=== PATIENT | male | born 1935 | race Caucasian/White ===

== ENCOUNTER 2020-01-02 15:24 | Inpatient (IN) | payer MEDICARE ==
[~2020-01-02] VITALS: Ht 182.9 cm; Wt 79.5 kg
[2020-01-02 16:25] VITALS: BP 152/80; Ht 182.9 cm; Wt 79.5 kg
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
[2020-01-02 17:19] LABS: BASOPHILS 0.5 % (0-2); EOSINOPHILS 2.5 % (0-7); HEMATOCRIT 37.9 % (42.0-54.0); HEMOGLOBIN 12.5 g/dL (13.5-17.5); IMMATURE GRANULOCYTES 0.1 % (0-5); LYMPHOCYTES 27.8 % (15-50); MCH 31.7 pg (26.0-34.0); MCV 96.2 fL (80.0-100.0); NEUTROPHILS 59.1 % (40-80); PLATELET COUNT 225 10x3/uL (130-400); RBC 3.94 10x6/uL (4.20-6.10); RDW 13.2 % (11.5-14.5); WBC 8.3 10x3/uL (4.8-10.8)
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
[2020-01-02 18:03] LABS: ALBUMIN 3.9 g/dL (3.4-5.0); ALKALINE PHOSPHATASE 96 U/L (30-120); ALT (SGPT) 21 U/L (10-68); BILIRUBIN - TOTAL 0.49 mg/dL (0.2-1.3); CALC OSMOLALITY 270 mosm/kg (275-300); CALCIUM 8.9 mg/dL (8.5-10.1); CARBON DIOXIDE 24.9 mmol/L (21.0-32.0); CHLORIDE - SERUM 101 mmol/L (98-107); CHOL - HDL RATIO 3.7 ratio (2.3-4.9); CHOLESTEROL, TOTAL 192 mg/dL (0-200); CREATININE - SERUM 0.9 mg/dL (0.6-1.3); GLUCOSE 100 mg/dL (74-106); HDL CHOLESTEROL 52 mg/dL (32-96); LDL CHOLESTEROL 130 mg/dL (0-100); LDL-HDL RATIO 2.5 ratio (1.5-3.5); POTASSIUM - SERUM 4.1 mmol/L (3.5-5.1); SODIUM 135 mmol/L (136-145); THYROID STIMULATING HORMONE 2.07 uIU/mL (0.36-3.74); TRIGLYCERIDE 52 mg/dL (30-200); UREA NITROGEN 14 mg/dL (7-18); eGFR NON AFRICAN AMERICAN 85 mL/min (90-120)
--- NOTE | 2020-01-02 19:13 | NUR ---
RECEIVED IN DAYROOM. SITTING IN A CHAIR WITH PEERS AT HIS SIDE. CALM AND COOPERATIVE WITH CARE AND ASSESSMENT. NO SIGNS OF AGGRESSION. REDIRECT AND REORIENT NEEDED. ORIENT TO UNIT. REMAINS CALM AND COOPERATIVE. CONTINUE PLAN OF CARE.
[2020-01-02 19:53] LABS: BILIRUBIN NEGATIVE (NEGATIVE); GLUCOSE NEGATIVE (NEGATIVE); KETONE SMALL mg/dL (NEGATIVE); NITRITE NEGATIVE (NEGATIVE); SPECIFIC GRAVITY 1.015 (1.005-1.020); UROBILINOGEN NORMAL (NORMAL)
[2020-01-02 20:25] VITALS: BP 147/72
--- NOTE | 2020-01-02 22:30 | NUR ---
PATIENT FALL. STATES HE WAS SITTING ON THE BED DOING SOMETHING WITH HIS CLOTHS AND LEANED OVER AND FELL. STATES HE HAS PAIN IN THE LEFT SIDE OF HIS HIP TO HIS BOTTOM. DOCTOR KENNEY CALLED AND ORDERS GIVEN TO X-RAY HIP AND START NEURO CHECKS. HOUSE SUPER INFORMED OF FALL. PATIENT SON "MARIO" INFORMED OF PATIENT FALL.
[2020-01-03] MEDS ORDERED: HYDROCODON-ACE1 EA10 PO (02:03)
[2020-01-03] MEDS ORDERED: HALDOL5 MG PO (02:04)
[2020-01-03] MEDS ORDERED: ATIVAN0.5 MG PO (02:06)
--- NOTE | 2020-01-03 03:42 | NUR ---
DOCTOR KENNEY CALLED AND NOTIFIED OF HIP FRACTURE. NEW ORDERS RECEIVED FOR NORCO 10 PRN EVERY 4 HRS AND TRANSFERE TO MED/SURG FOR. CONSULT ORTHO.
[2020-01-03 06:08] LABS: RAPID PLASMA REAGIN Non Reactive (Non Reactive)
== END 2020-01-03 01:59 | disposition short-term general hospital (02) | DRG 57 ==
LOC: D.PSYCH 15:24
PROVIDERS: ADMIT Psychiatry & Neurology Psychiatry; ATTEND Psychiatry & Neurology Psychiatry
DX: G30.9 Alzheimer's disease, unspecified (principal); S72.002A Fracture of unspecified part of neck of left femur, initial encounter for closed fracture; F02.81 Dementia in other diseases classified elsewhere, unspecified severity, with behavioral disturbance; R26.9 Unspecified abnormalities of gait and mobility; M19.90 Unspecified osteoarthritis, unspecified site; W19.XXXA Unspecified fall, initial encounter

== ENCOUNTER 2020-01-03 01:50 | Inpatient (IN) | payer MEDICARE ==
[~2020-01-03] VITALS: Ht 182.9 cm; Wt 79.4 kg
--- NOTE | 2020-01-03 02:00 | NUR ---
PT ARRIVED VIA HOSPITAL BED TO UNIT WITH X2 NURSES. ORIENTED TO ROOM AND CALL LIGHT. BED ALARM ACTIVATED AND SIDE RAILS UP X3 FOR SAFETY.
[2020-01-03] MEDS ORDERED: HYDROCODON-ACE1 EA10 PO (02:03)
[2020-01-03] MEDS ORDERED: HALDOL5 MG PO (02:04)
[2020-01-03] MEDS ORDERED: ATIVAN0.5 MG PO (02:06)
--- NOTE | 2020-01-03 02:20 | NUR ---
IV SITED TO RIGHT FOREARM USING 20 GUAGE CATHETER IN ONE STICK. SALINE LOCKED AND WRAPPED WITH KERLEX TO KEEP PT FROM PULLING OUT.
--- NOTE | 2020-01-03 02:45 | NUR ---
PT O2 SATS AT 70% . PLACED O2 VIA NC AT 5L BEFORE IT GOT ABOVE 90%. CALLED RT TO EVAL.
[2020-01-03 02:51] VITALS: BP 119/59; BMI 23.8
--- NOTE | 2020-01-03 03:12 | NUR ---
VALUABLES: JAZZ SYLVESTER, CHECKBOOK, TAKEN TO ER ADMISSIONS BY MAR BENAVIDES...LOCKED IN HOSPITAL SAFE WITH WITNESS TO CONTENTS.
--- NOTE | 2020-01-03 03:13 | NUR ---
PT GIVEN A HIBACLENS BATH. YELLOW GOWN, GRIPPER SOCKS, AND BED ALARM IN PLACE FOR FALL PRECAUTIONS.
--- NOTE | 2020-01-03 03:14 | NUR ---
ADMISSION ASSESSMENT AND HISTORY COMPLETE.
[2020-01-03 04:00] VITALS: BP 119/59
[2020-01-03 07:37] VITALS: BP 147/73
--- NOTE | 2020-01-03 07:40 | NUR ---
ALERT AND ORIENTED TO SELF. LUNGS CLEAR BILATERALLY. HEART SOUNDS S1 AND S2 HEARD IN ALL SANTIAGO. BOWEL SOUNDS ACTIVE X 4. SKIN INTACT WITHOUT REDNESS. IV TO RFA SL PATENT WITHOUT REDNESS. BED LOW. FALL PRECAUTIONS IN PLACE. CALL PEDRO AND PERSONAL ITEMS IN REACH. WILL CONTINUE TO MONITOR.
[2020-01-03 08:10] LABS: BASOPHILS 0.1 % (0-2); EOSINOPHILS 0.3 % (0-7); HEMATOCRIT 37.9 % (42.0-54.0); HEMOGLOBIN 12.6 g/dL (13.5-17.5); IMMATURE GRANULOCYTES 0.2 % (0-5); LYMPHOCYTES 5.7 % (15-50); MCH 31.7 pg (26.0-34.0); MCHC 33.2 g/dL (31.0-37.0); MCV 95.5 fL (80.0-100.0); MEAN PLATELET VOLUME 9.5 fL (7.4-10.4); MONOCYTES 8.2 % (2-11); NEUTROPHILS 85.5 % (40-80); PLATELET COUNT 182 10x3/uL (130-400); RBC 3.97 10x6/uL (4.20-6.10); RDW 13.4 % (11.5-14.5)
[2020-01-03 08:27] LABS: WBC 14.4 10x3/uL (4.8-10.8)
[2020-01-03 08:31] LABS: ALBUMIN 3.5 g/dL (3.4-5.0); ANION GAP 13.3 mmol/L (8-16); BILIRUBIN - TOTAL 0.91 mg/dL (0.2-1.3); CALCIUM 8.7 mg/dL (8.5-10.1); CARBON DIOXIDE 25.7 mmol/L (21.0-32.0); CREATININE - SERUM 1.1 mg/dL (0.6-1.3); INR 0.99 (0.85-1.17); PROTEIN - SERUM 6.8 g/dL (6.4-8.2); PROTIME 13.1 SECONDS (11.6-15.0)
--- NOTE | 2020-01-03 10:30 | NUR ---
SPOKE WITH MARIO, PATIENT'S SON, WHO GAVE VERBAL CONSENT FOR PROCEDURE FOR PATIENT. CONSENT GIVEN TO SECOND RN, ASHLEY, WELL. CONSENTS SIGNED AND ON CHART FOR PROCEDURE.
--- NOTE | 2020-01-03 11:01 | NUR ---
PATIENT ATTEMPTING TO GET OOB. READJUSTED IN BED WITH SOME CONVINCING. CONVINCED TO WEAR O2 WELL. TV TURNED ON AND PATIENT GIVEN REMOTE CONTROL. SATISFIED AND CONTENT AT THIS TIME.
[2020-01-03 12:17] VITALS: BP 165/74
--- NOTE | 2020-01-03 13:24 | NUR ---
RESTING IN BED. DENIES NEEDS. WILL CONTINUE TO MONITOR.
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
--- NOTE | 2020-01-03 21:39 | NUR ---
CODE GIUSEPPE CALLED AND GEODON GIVEN ORDERED DUE TO AGITATION, YELLING THREATENING TO HIT, LEGS OVER SIDE RAILS, SPOKE WITH ALAYNA WHO SUGESTED GIVE GEODON
--- NOTE | 2020-01-04 06:00 | NUR ---
CALL RECIEVED FROM DR WISDOM TO PREOP NOW FOR SURGERY, MEDS GIVEN ORDERED
--- NOTE | 2020-01-04 06:40 | NUR ---
TO SURGERY VIA STRETCHER
--- NOTE | 2020-01-04 07:00 | NUR ---
PT WAS OFF FLOOR AT THIS TIME IN SURGERY.
--- NOTE | 2020-01-04 09:43 | NUR ---
O2 DELIVERY CHANGED TO 10 LPM VIA HIFLO NC
--- NOTE | 2020-01-04 10:00 | NUR ---
REC'D BACK FROM SURGERY AT THIS TIME RESTING WITH EYES CLOSED EASILY TO AROUSED WHEN NAME IS CALLED, THEN DOSE BACK OFF TO SLEEP. RESP EVEN AND UNLABORED WITH NO DISTRESS NOTED. CAN EXPRESS SOME NEEDS AND WANTS. DRESSING INTACT WITH ICE PACK IN USE TO LEFT HIP. C/L IN REACH AT BEDSIDE.
[2020-01-04 10:01] VITALS: BP 156/67
--- NOTE | 2020-01-04 10:39 | OP ---
PATIENT NAME: MARGRET VALADEZ MEDICAL RECORD: [id number] :37 LOCATION:[id number] ADMISSION DATE:01/03/20 SURGEON: HAN WISDOM MD DATE OF OPERATION: 01/04/2020 PREOPERATIVE DIAGNOSIS: Displaced femoral neck fracture of left hip. POSTOPERATIVE DIAGNOSIS: Displaced femoral neck fracture of left hip. PROCEDURE: Bipolar endoprosthetic replacement for left hip fracture. SURGEON: Han Wisdom MD BUDGET ACCOUNTANT: JUAN Salas INTRAOPERATIVE COMPLICATIONS: None. SUMMARY OF PATHOLOGIC FINDINGS: The patient has displaced femoral neck fracture consistent with the preoperative radiographs and diagnosis. IMPLANTS USED: Accolade II Bipolar stem with a 56 outside diameter component and a 26-mm inside diameter, -3, size 8 Accolade stem. OPERATIVE SUMMARY IN DETAIL: After obtaining the appropriate preoperative orthopedic surgery consent as well as anesthetic consultation, evaluation and clearance, the patient was brought to the operating room and placed on the operating table in supine position. After adequate general endotracheal anesthesia was administered, the patient was placed in a right lateral decubitus position. All pressure points were well padded to include down leg peroneal pad as well as axillary roll. The patient was held firmly to the operating table using the vacuum pack suction system. Left lower extremity and hip were then prepped and draped in routine sterile fashion. Curvilinear incision was made over the greater trochanter taking down all of the IT band, which was split in line with fibers of the IT band to reveal the gluteus medius minimus attached from the greater trochanter. These were reflected anteriorly. Hip capsule was split in a T-type fashion and saved for later reapproximation. Femoral neck cut was made using the Accolade II femoral neck cutting guide. This was followed by extraction of the femoral head. Appropriate measurements were taken. Serial and sequential reaming and broaching were done for a size 8 stem, size 8 stem was tamped into place. Trials were undertaken. It was felt that -3 with 56 outside diameter was most appropriate. This was tamped in place with the Zaragoza taper. The hip was reduced, taken through range of motion and found to be stable in all planes. At this point, radiographs were taken, which showed good position and placement with zoroastrianism of leg length. Wound was then filled with a gram of vancomycin and a gram of tobramycin and closed by Garcia Walker, FA including the hip capsule closed with #2 Ethibond followed by #5 Ethibond, reapproximation of gluteus medius minimus to the greater trochanter. This was then followed by IT band closure with #2 Ethibond, then finished with #1 Vicryl, 2-0 Vicryl and skin andrew. Sterile dressings were applied. The patient was awakened and taken to the recovery room in stable condition. All final needle and sponge counts were correct. It is of note that the patient did have an episode of atrial fibrillation and required digitalis as well as esmolol. It is also of note that during the coronavirus pandemic, the patient could have no visitors. I therefore called his son postoperatively and discussed the entire situation with him and that the patient will go to a monitored bed with at this OPERATIVE REPORT [id number] MARGRET VALADEZ. TRANSINT:[id number] Voice Confirmation ID: [id number] DOCUMENT ID: [id number] ALYX FRANKEL, HAN BRYANT at 1039 CC: [id number] DICTATION DATE: 01/04/20920 ADMINISTRATION DEAN: 01/04/20 1037 ADM IN [facility] [address] [id number]
[2020-01-04 13:33] VITALS: Ht 182.9 cm; Wt 79.4 kg
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
--- NOTE | 2020-01-04 16:53 | NUR ---
I have reviewed this patient and I concur with the Shift Assessment completed by the Licensed Practical Nurse today this shift.
--- NOTE | 2020-01-04 18:42 | NUR ---
PT PULLED IV OUT AND REFUSED FOR NURSE TO RESITE. PT WAS COMBATIVE. REDIRECT GIVEN BUT WAS UNSUCCESSFUL.
--- NOTE | 2020-01-04 19:46 | NUR ---
PATIENT RESTING IN BED WITH NO S/S OF DISTRESS. BED IN LOWEST POSITION AND CALL LIGHT WITHIN REACH. PATIENT DENIES NEEDS AT THIS TIME. ENOURAGED THE PATIENT TO CALL IF HE HAS NEEDS. WILL CONTINUE TO MONITOR.
[2020-01-04 21:49] VITALS: BP 126/67
--- NOTE | 2020-01-04 22:07 | NUR ---
ADMINISTERED MEDS PER ORDERS. PATIENT DENIES OTHER NEEDS AT THIS TIME. WILL CONTINUE TO MONITOR.
--- NOTE | 2020-01-05 03:27 | NUR ---
SITED PATIENT'S IV TO HIS RIGHT FA WITH A 20G ON THE FIRST ATTEMPT.
[2020-01-05 05:29] LABS: HEMATOCRIT 36.2 % (42.0-54.0); HEMOGLOBIN 11.6 g/dL (13.5-17.5); MCH 31.2 pg (26.0-34.0); MCV 97.3 fL (80.0-100.0); MEAN PLATELET VOLUME 10.4 fL (7.4-10.4); RBC 3.72 10x6/uL (4.20-6.10); RDW 13.9 % (11.5-14.5); WBC 11.3 10x3/uL (4.8-10.8)
[2020-01-05 06:01] VITALS: BP 100/67
[2020-01-05 09:37] VITALS: BP 158/85
--- NOTE | 2020-01-05 10:26 | NUR ---
PT CONFUSED. BREATH SOUNDS CLEAR BILAT, 3L O2 PER NC. IV TO RIGHT FOREARM, PATENT, DRESSING CDI. TELEMETRY IN PLACE. DRESSING TO LEFT HIP CDI. BED LOW, CALL LIGHT IN REACH. NO OTHER NEEDS AT THIS TIME.
[2020-01-05 13:42] VITALS: BP 156/78
[2020-01-05 17:16] VITALS: BP 154/86
[2020-01-05 20:00] VITALS: BP 131/95
--- NOTE | 2020-01-05 20:00 | NUR ---
PATIENT RESTING IN BED WITH EYES OPEN. NO S/S OF ACUTE DISTRESS. NO C/O AT THIS TIME. PATIENT IS CONFUSED AND COMBATIVE, ORIENTATED ONLY TO SELF. PATIENT IS ON 3L OF O2. PATIENT HAS NO IV ACCESS BECAUSE HE KEEPS TAKING THEM OUT. PATIENT HAS TELEMETRY BUT KEEPS TAKING IT OFF. PATIENT HAD SURGERY TODAY ON LEFT HIP, DRESSING C/D/I. PATIENT IS INCONTINENT OF BOWEL AND BLADDER. PATIENT HAS MARU ALARM ON BED. CALL LIGHT IN PLACE. WILL CONTINUE TO MONITOR.
[2020-01-06] VITALS: BP 147/89
[2020-01-06 04:00] VITALS: BP 106/75
[2020-01-06 05:12] LABS: HEMATOCRIT 37.2 % (42.0-54.0); HEMOGLOBIN 12.3 g/dL (13.5-17.5); MCH 31.9 pg (26.0-34.0); MCHC 33.1 g/dL (31.0-37.0); MCV 96.4 fL (80.0-100.0); MEAN PLATELET VOLUME 10.9 fL (7.4-10.4); RBC 3.86 10x6/uL (4.20-6.10); RDW 13.9 % (11.5-14.5); WBC 11.8 10x3/uL (4.8-10.8)
--- NOTE | 2020-01-06 06:21 | NUR ---
I have reviewed this patient and I concur with the Shift Assessment completed by the Licensed Practical Nurse today this shift.
--- NOTE | 2020-01-06 07:20 | NUR ---
REC'D IN BED ON WALKING ROUNDS WITH EYES CLOSED EASILY TO AROUSED WHEN NAME IS CALLED. RESP EVEN AND UNLABORED WITH NO DISTRESS NOTED. PT CONTINUE TO GET VERLY AGGRESSIVE FROM TIME TO TIME. ASSESSMENT COMPLETED. C/L IN REACH AT BEDSIDE.
[2020-01-06] MEDS ORDERED: HYDROCODON-ACE1 EA10 PO (09:38)
[2020-01-06] MEDS ORDERED: ELIQUIS2.5 MG PO (09:39)
[2020-01-06 13:06] VITALS: BP 179/117
[2020-01-06 16:28] VITALS: BP 181/96
[2020-01-06 20:00] VITALS: BP 134/78
--- NOTE | 2020-01-06 20:00 | NUR ---
PATIENT RESTING IN BED WITH EYES CLOSED. NO S/S OF DISTRESS. NO C/O AT THIS TIME. PATIENT IS CONFUSED, ORIENTATED ONLY TO SELF. PATIENT IS COMABATIVE WHEN TRYING TO MOVE TO REPOSITION HIM OR TO CHANGE HIM. PATIENT HAS DRESSING TO LEFT HIP, C/D/I, FROM SURGERY THREE DAYS AGO. PATIENT IS INCONTIENT OF BOWEL AND BLADDER. PATIENT HAS MARU ALARM IN PLACE AND TURNED ON. CALL LIGHT IN PLACE. WILL CONTINUE TO MONITOR.
[2020-01-07] VITALS: BP 130/76
[2020-01-07 04:00] VITALS: BP 127/74
--- NOTE | 2020-01-07 10:50 | MORECARE ---
CASE MANAGEMENT DISCHARGE SUMMARY PATIENT: MARGRET MOMIN UNIT: [id number] ADM DATE: 01/03/20 AGE: 84 : 36 SEX: M ROOM/BED: D.2231 AUTHOR: LDUA,DOC PHYSICIAN: REFERRING PHYSICIAN: RIO SERRANO MD DATE OF SERVICE: 01/07/20 Discharge Plan Patient Name: MARGRET MOMIN Facility: [facility]:[place] : 1935 Planned Disposition: Psych Hosp w Plan Readm Anticipated Discharge Date: 01/07/20 Discharge Date: Expected LOS: 4 Initial Reviewer: [email or web address] Initial Review Date: 01/07/2020 Generated: 01/07/20 11:49 am Comments DCP- Discharge Planning Updated by [email or web address]: Abigail Neff on 01/07/20 9:[address] Patient Name: MARGRET MOMIN Admission Status: Elective Accout number: [id number] Admission Date: 01-03-2020 : 1935 Admission Diagnosis:FRACTURE OF UNSP PART OF NECK OF LEFT FEMUR, INIT Attending: RIO SERRANO Current LOS: 4 Anticipated DC Date: 01-07-2020 Planned Disposition: Psych Hosp w Plan Readm Primary Insurance: MEDICARE PART A ONLY Discharge Planning Comments: CM spoke with patient's son, Ernesto, concerning discharge planning. He states his father has lived at [facility] in assisted living since Oct. States he has only began declining in the last few weeks. States he has made plans to have him go to [facility] after Senior Living, but they are not accepting patient's at this time. I informed him to call [facility] for the needed paperwork to apply for LTC Medicaid. He can also call 1-800-Medicare for enrollment in Medicare B. He is in agreement to Senior Living placement today. Qc Analyst: Abigail Neff DCPIA - Discharge Planning Initial Assessment Updated by [id number]: Abigail Neff on 01/07/20 10:45 am * Is the patient Alert and Oriented? Yes * How many steps to enter\exit or inside your home? 0/0 * PCP Dr. Serrano * Preadmission Environment Assisted Living * Facility Name [facility] * ADLs Partial Dependent * Partial ADLs (Assistance needed) Medication Management * List name and contact numbers for known caregivers / representatives who currently or will assist patient after discharge: Ernesto Momin - son - [phone] * Verbal permission to speak to the caregivers and representatives has been obtained from the patient. Yes * Community resources currently utilized Private Duty Care * Please name any agencies selected above. Private sitter at night * Additional services required to return to the preadmission environment? Yes * Can the patient safely return to the preadmission environment? No * Has this patient been hospitalized within the prior 30 days at any hospital? No Coverage Notice Reviewer: [email or web address] Laura Neff Notice Issued Date-Time: 01/07/2020 10:49 Notice Type: IM Discharge Notice Notice Delivered To: Family Member Relationship to Patient: Son Software Tester Name: Ernesto Momin Delivery Method: - Meeta Days: Prior Verbal Notification: Recipient Understood Notice: Recipient Signature: Med Rec Note Co-signed by Attending: Coverage Notice Comment: Patient Name: MARGRET MOMIN Page [phone] at 1050 All edits/amendments must be made on the electronic document DICTATION DATE: 01/07/20 1049 PHYSICAL PLANT MANAGER: DARIO 01/07/20 1049 RPT#: [id number] DC DATE: STATUS: ADM IN [facility] [address] [place] [address] END OF REPORT
[2020-01-07] MEDS ORDERED: TOPROL XL25 MG PO (12:13)
[2020-01-07] MEDS ORDERED: PROTONIX40 MG PO (12:13)
--- NOTE | 2020-01-07 13:41 | NUR ---
PT CONFUSED. ORAL BREATH SOUNDS CLEAR BILAT. DRESSING TO LEFT HIP CHANGED. PT EXPECTED TO DC BACK TO CARE TODAY. BED LOW, CALL LIGHT IN REACH. NO OTHER NEEDS AT THIS TIME.
--- NOTE | 2020-01-07 17:31 | NUR ---
PT DC'D TO CARE. ESCORTED OUT VIA WHEELCHAIR.
--- NOTE | 2020-01-08 14:27 | MORECARE ---
CASE MANAGEMENT DISCHARGE SUMMARY PATIENT: MARGRET MOMIN UNIT: [id number] ADM DATE: 01/03/20 AGE: 84 : 36 SEX: M ROOM/BED: D.2231 AUTHOR: LUDA,DOC PHYSICIAN: REFERRING PHYSICIAN: RIO SERRANO MD DATE OF SERVICE: 01/08/20 Discharge Plan Patient Name: MARGRET MOMIN Facility: [facility]:[place] : 1935 Planned Disposition: Psych Hosp w Plan Readm Anticipated Discharge Date: 01/07/20 Discharge Date: 01/07/2020 Expected LOS: 4 Initial Reviewer: [email or web address] Initial Review Date: 01/07/2020 Generated: 01/08/20 3:26 pm Comments DCP- Discharge Planning Updated by [email or web address]: Abigail Neff on 01/07/20 9:[address] Patient Name: MARGRET MOMIN Admission Status: Elective Accout number: [id number] Admission Date: 01-03-2020 : 1935 Admission Diagnosis:FRACTURE OF UNSP PART OF NECK OF LEFT FEMUR, INIT Attending: RIO SERRANO Current LOS: 4 Anticipated DC Date: 01-07-2020 Planned Disposition: Psych Hosp w Plan Readm Primary Insurance: MEDICARE PART A ONLY Discharge Planning Comments: CM spoke with patient's son, Ernesto, concerning discharge planning. He states his father has lived at [facility] in assisted living since Oct. States he has only began declining in the last few weeks. States he has made plans to have him go to [facility] after Senior Living, but they are not accepting patient's at this time. I informed him to call [facility] for the needed paperwork to apply for LTC Medicaid. He can also call 1-800-Medicare for enrollment in Medicare B. He is in agreement to Senior Living placement today. Tube Maker: Abigail Neff DCPIA - Discharge Planning Initial Assessment Updated by [id number]: Abigail Neff on 01/07/20 10:45 am * Is the patient Alert and Oriented? Yes * How many steps to enter\exit or inside your home? 0/0 * PCP Dr. Serrano * Preadmission Environment Assisted Living * Facility Name [facility] * ADLs Partial Dependent * Partial ADLs (Assistance needed) Medication Management * List name and contact numbers for known caregivers / representatives who currently or will assist patient after discharge: Ernesto Momin - son - [phone] * Verbal permission to speak to the caregivers and representatives has been obtained from the patient. Yes * Community resources currently utilized Private Duty Care * Please name any agencies selected above. Private sitter at night * Additional services required to return to the preadmission environment? Yes * Can the patient safely return to the preadmission environment? No * Has this patient been hospitalized within the prior 30 days at any hospital? No Coverage Notice Reviewer: [id number] Laura Neff Notice Issued Date-Time: 01/07/2020 10:49 Notice Type: IM Discharge Notice Notice Delivered To: Family Member Relationship to Patient: Son Cook Seafood Name: Ernesto Momin Delivery Method: CERT - Certified Mail Meeta Days: Prior Verbal Notification: Recipient Understood Notice: Yes Recipient Signature: Yes Med Rec Note Co-signed by Attending: Coverage Notice Comment: Phoned patient's son and IMM will be delivered by certified mail. Last DP export: 01/07/20 9:50 a Patient Name: MARGRET MOMIN Page [phone] at 1427 All edits/amendments must be made on the electronic document DICTATION DATE: 01/08/201425 AMBULATORY CARE NURSE: DARIO 01/08/201425 RPT#: [id number] DC DATE:01/07/20 STATUS: DIS IN [facility] [address] [place] [address] END OF REPORT
== END 2020-01-07 17:31 | disposition short-term general hospital (02) | DRG 469 ==
LOC: D.MS 01:50
PROVIDERS: Orthopaedic Surgery; ADMIT Family Medicine; ATTEND Family Medicine
PROC: 0SRB0JZ Replacement of Left Hip Joint with Synthetic Substitute, Open Approach (ICD-10-PCS; principal; 2020-01-04 07:30)
DX: S72.002A Fracture of unspecified part of neck of left femur, initial encounter for closed fracture (principal); G93.41 Metabolic encephalopathy; F02.81 Dementia in other diseases classified elsewhere, unspecified severity, with behavioral disturbance; I10 Essential (primary) hypertension; W19.XXXA Unspecified fall, initial encounter; G30.1 Alzheimer's disease with late onset; I48.0 Paroxysmal atrial fibrillation; I49.1 Atrial premature depolarization

== ENCOUNTER 2020-01-07 14:52 | Inpatient (IN) | payer MEDICARE ==
[~2020-01-07] VITALS: Ht 182.9 cm; Wt 80.9 kg
[~2020-01-07 14:52] MED LIST: ATIVAN0.5 MG PO; ELIQUIS2.5 MG PO; HALDOL5 MG PO; HYDROCODON-ACE1 EA10 PO; PROTONIX40 MG PO; TOPROL XL25 MG PO
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
[2020-01-07 17:33] VITALS: BP 122/84; BMI 22.2
[2020-01-07 20:00] VITALS: BP 158/71
--- NOTE | 2020-01-07 21:58 | NUR ---
ROLANDO ZAPATA LOCKED UP IN THE EMERGENCY DEPT. PAPERWORK DOCUMENTS THAT ON 01/03/20 HIS ITEM WERE PLACED IN ER LOCK UP.
--- NOTE | 2020-01-07 22:16 | NUR ---
B.) PT IS ALERT AND ORIETED TO SELF ONLY. HE HAS POOR INSIGHT INTO HIS SITUATION. HE IS RESTLESS AND ATTEMPTS TO GET UP WITHOUT ASSIST. HE IS RECEIVED IN THE HALLWAY BY THE NURSES STATION IN A RAMIREZ-CHAIR. I.) PROVIDED PM MEDICATIONS PRESCRIBED. ADMINISTERED PRN NORCO [address] MOULTON FOR PAIN. REDIRECT OFTEN. R.) COMPLIANT WITH ALL MEDICATIONS. EASY TO REDIRECT. P.) WILL CONTINUE TO MONITOR.
[2020-01-08 06:08] LABS: BASOPHILS 0.1 % (0-2); EOSINOPHILS 1.5 % (0-7); HEMATOCRIT 36.6 % (42.0-54.0); HEMOGLOBIN 12.1 g/dL (13.5-17.5); IMMATURE GRANULOCYTES 0.3 % (0-5); LYMPHOCYTES 14.8 % (15-50); MCH 31.7 pg (26.0-34.0); MCHC 33.1 g/dL (31.0-37.0); MCV 95.8 fL (80.0-100.0); MEAN PLATELET VOLUME 10.4 fL (7.4-10.4); MONOCYTES 10.3 % (2-11); RBC 3.82 10x6/uL (4.20-6.10); WBC 12.7 10x3/uL (4.8-10.8)
[2020-01-08 06:17] LABS: PLATELET COUNT 232 10x3/uL (130-400)
[2020-01-08 07:08] LABS: ALBUMIN 2.8 g/dL (3.4-5.0); ALKALINE PHOSPHATASE 71 U/L (30-120); ALT (SGPT) 30 U/L (10-68); CALC OSMOLALITY 304 mosm/kg (275-300); CALCIUM 9.1 mg/dL (8.5-10.1); CARBON DIOXIDE 26.1 mmol/L (21.0-32.0); CHLORIDE - SERUM 110 mmol/L (98-107); CHOL - HDL RATIO 4.8 ratio (2.3-4.9); CHOLESTEROL, TOTAL 162 mg/dL (0-200); GLUCOSE 116 mg/dL (74-106); HDL CHOLESTEROL 34 mg/dL (32-96); LDL CHOLESTEROL 114 mg/dL (0-100); LDL-HDL RATIO 3.4 ratio (1.5-3.5); POTASSIUM - SERUM 3.2 mmol/L (3.5-5.1); SODIUM 149 mmol/L (136-145); THYROID STIMULATING HORMONE 1.47 uIU/mL (0.36-3.74); TRIGLYCERIDE 71 mg/dL (30-200); UREA NITROGEN 35 mg/dL (7-18); eGFR NON AFRICAN AMERICAN 76 mL/min (90-120)
--- NOTE | 2020-01-08 08:01 | NUR ---
The patient is very confused this am, he has poor insight into his situation, he is scared and nervous with staff trying to assist him out of bed. He thinks staff are going to drop him or he will fall even though staff are reassuring him. He knows his name only. Provide prescribed meds, encourage him to eat and drink, and encourage him to move more. He has a dressing to his left hip. He is not moving well on his own. Continue POC.
[2020-01-08 08:54] VITALS: BP 65/35
[2020-01-08 09:28] VITALS: BP 130/80
--- NOTE | 2020-01-08 09:33 | NUR ---
The patient is grimacing and has not said he is hurting. Asked him if he would like a pain pill. He said "That sounds good." But then explained to him that I would go get him a pain pill. He said "oh, no, no." He is confused. Provide him a [place], see MAR.
--- NOTE | 2020-01-08 10:30 | NUR ---
The patient is resting and no c/o pain. PT came and walked him and he did well with the male therapist.
--- NOTE | 2020-01-08 19:19 | NUR ---
RECEIVED IN DAYROOM. SITTING IN A RECLINER WITH EYES CLOSED. CALM AND COOPERATIVE WITH CARE AND ASSESSMENT. NO SIGNS OF AGGRESSION. REDIRECT AND REORIENT NEEDED. CONTINUES TO SIT QUIETLY IN DAYROOM. CONTINUE PLAN OF CARE.
[2020-01-08 20:00] VITALS: BP 128/69
[2020-01-09 08:29] VITALS: BP 172/70
--- NOTE | 2020-01-09 12:00 | NUR ---
RECEIVED IN HALLWAY OUTSIDE OF NURSES STATION. CALM AND COOPERATIVE WITH CARE AND ASSESSMENT. NO AGGRESSIVE BEHAVIOR. NO AGITATION. REDIRECT AND REORIENT NEEDED. EATING LUNCH AT THIS TIME. CONTINUE PLAN OF CARE.
[2020-01-09 12:49] VITALS: Ht 182.9 cm; Wt 80.9 kg
--- NOTE | 2020-01-09 18:02 | NUR ---
PT STATES "I'M NOT IN ANY PAIN RIGHT NOW I DON'T NEED TYLENOL." I VRBALIZED UNDERSTANDING.
--- NOTE | 2020-01-09 19:58 | NUR ---
RECEIVED IN DAYROOM. SITTING IN A RECLINING CHAIR WITH PEERS AT HIS SIDE. CALM AND COOPERATIVE WITH CARE AND ASSESSMENT. NO SIGNS OF AGGRESSION. REDIRECT AND REORIENT NEEDED. CONTINUES TO SIT CALMLY AT THIS TIME. CONTINUE PLAN OF CARE.
[2020-01-09 20:11] VITALS: BP 108/52
[2020-01-10 06:08] LABS: RAPID PLASMA REAGIN Non Reactive (Non Reactive)
[2020-01-10 08:47] VITALS: BP 134/100
--- NOTE | 2020-01-10 08:59 | NUR ---
RECEIVED IN HALLWAY OUTSIDE OF NURSES STATION. CALM AND COOPERATIVE WITH CARE AND ASSESSMENT. NO AGITATION. NO AGGRESSION. REDIRECT AND REORIENT NEEDED. EATING BREAKFAST AT THIS TIME. CONTINUE PLAN OF CARE.
--- NOTE | 2020-01-10 15:01 | PN ---
PATIENT:MARGRET VALADEZ MEDICAL RECORD: [id number] LOCATION:DENNY Ibrahim ADMISSION DATE: 01/07/20 PROGRESS NOTE DATE OF SERVICE: 01/09/2020 SUBJECTIVE: The patient's case was discussed with staff. He has no new complaint. OBJECTIVE: The patient has been attempting to stand, even though he just had surgery for fractured hip. He cannot remember when he is being redirected that this has happened. He is disorganized. ASSESSMENT: Dementia. PLAN: The patient will be treated with Aricept at a dose of 5 mg at bedtime. Aricept is being used to treat his underlying cognitive impairment. He will be monitored for clinical changes associated with its use. TRANSINT:[id number] Voice Confirmation ID: [id number] DOCUMENT ID: [id number] BOB ZAMUDIO MD at 1501 CC: [id number] DICTATION DATE: 01/09/20 1644 TOPPER PRESS OPERATOR AUTOMATIC: 01/09/20 1713 ADM IN [place] [id number] [place] [address]
--- NOTE | 2020-01-10 19:28 | NUR ---
RECEIVED IN DAYROOM. SITTING IN A RECLINER. RESTLESS. ANXIETY. ATTEMPTS TO STAND WITHOUT ASSIST. BEGINNING TO BECOME AGITATED AT TIMES WITH REDIRECTION. REDIRECT AND REORIENT NEEDED. CONTINUES TO BE RESTLESS. CONTINUE PLAN OF CARE.
[2020-01-10 20:22] VITALS: BP 137/77
[2020-01-11 09:10] VITALS: BP 139/74
--- NOTE | 2020-01-11 11:46 | PN ---
PATIENT:MARGRET VALADEZ MEDICAL RECORD: [id number] LOCATION:DENNY Ibrahim ADMISSION DATE: 01/07/20 PROGRESS NOTE DATE OF SERVICE: 01/10/2020 SUBJECTIVE: The patient's case was discussed with staff. He has no new complaint. OBJECTIVE: The patient is in good behavioral control. He has limited insight about his condition. He has not been aggressive today. ASSESSMENT: Dementia. PLAN: The patient will be maintained on current medicines, which I have reviewed. His long-term prognosis is guarded. I anticipate he can be transitioned back to the prison soon if this level of improvement continues. TRANSINT:[id number] Voice Confirmation ID: [id number] DOCUMENT ID: [id number] BOB ZAMUDIO MD at 1146 CC: [id number] DICTATION DATE: 01/10/20 1639 ADDICTION SOCIAL WORKER: 01/10/20 2242 ADM IN [facility] [address] [place] [address]
--- NOTE | 2020-01-11 12:00 | NUR ---
RECEIVED IN HALLWAY OUTSIDE OF NURSES STATION. CALM AND COOPERATIVE WITH CARE AND ASSESSEMNT. NO AGGRESSIVE BEHAVIORS. REDIRECT AND REORIENT NEEDED. EATING LUNCH AT THIS TIME. CONTINUE PLAN OF CARE.
[2020-01-11 20:00] VITALS: BP 135/51
--- NOTE | 2020-01-11 21:57 | NUR ---
B.) PT IS ALERT AND ORIENTED TO SELF ONLY. HE IS RECEIVED IN THE DAYROOM IN HIS WHEELCHAIR. HE IS CALM AND COOPERATIVE WITH STAFF. HE IS ABLE TO MAKE HIS NEEDS KNOWN. I.) PROVIDED PM MEDICATIONS PRESCRIBED. REDIRECT OFTEN. R.) COMPLIANT WITH ALL MEDICATIONS. EASY TO REDIRECT. P.) WILL CONTINUE TO MONITOR.
--- NOTE | 2020-01-12 08:44 | NUR ---
Nutrition Follow-up: PO intake improved yesterday; noted pt ate 40-100% of meals. Diet: Regular PO intake: 50% avg x last 9 meals (01/08-01/10) Wt: 160# (01/08); 163# (01/06) Last BM: 01/11 per chart No new labs Meds noted: Senokot, Nystatin, Protonix -Encourage PO intake and honor food preferences. -Offer nutrition supplements. -Monitor wt. -RD following.
[2020-01-12 09:08] VITALS: BP 136/76
--- NOTE | 2020-01-12 10:16 | NUR ---
PT SITTING IN CHAIR AT BREAKFAST TABLE. NO ACUTE DISTRESS NOTED. PT IS ALERT AND ORIENTED TO SELF ONLY. REDIRECT AND REORIENT NEEDED. PT IS EASY TO REDIRECT PER PREVIOUS SHIFT. NO INCREASED AGITATION NOTED. PT IS COMPLIANT WITH MEDS, VITALS AND ASSESSMENTS. PT REQUIRES 1X ASSSITANCE WITH ADLS. PT HAS A MEPLIEX TO L HIP FOR INCISION. CHAIR ALARM IN PLACE AND ACTIVE. WILL CONT PLAN OF CARE.
--- NOTE | 2020-01-12 15:37 | PN ---
PATIENT:MARGRET VALADEZ MEDICAL RECORD: [id number] LOCATION:DENNY Christian112 ADMISSION DATE: 01/07/20 PROGRESS NOTE DATE OF SERVICE: 01/11/2020 SUBJECTIVE: The patient's case was discussed with staff. He has no new complaint. OBJECTIVE: The patient is severely impaired cognitively, but behaviorally, he is in good behavioral control. He is confused. He continues to try to stand up and is requiring almost constant redirection not to do so. His son would like him to go to [facility] for rehabilitative services and will make a referral there. TRANSINT:[id number] Voice Confirmation ID: [id number] DOCUMENT ID: [id number] BOB ZAMUDIO MD at 1537 CC: [id number] DICTATION DATE: 01/11/20 1151 SUBSTANCE ABUSE SPECIALIST: 01/11/20 1230 ADM IN [place] [address] [place] [address]
[2020-01-12 20:36] VITALS: BP 125/86
--- NOTE | 2020-01-13 01:58 | NUR ---
PATIENT PULLING CLOTHES OFF AND PADS OFF BED. ATTEMPTING TO GET OUT OF BED UNASSISTED. NOT RESPONDING TO VERBAL REDIRECTION. PRN HALDOL AND ATIVAN IM ADMINISTERED PER ORDERS.
--- NOTE | 2020-01-13 03:19 | NUR ---
B)RECEIVED PATIENT SITTING IN A WHEELCHAIR IN THE DAYROOM. REPEATEDLY ASK TO GO TO HIS ROOM. ORIENTED TO SELF ONLY. IGIUGIG. DELUSIONAL RELATING I OWE HIM 70,000 DOLLATS. NOT INTERACTING WITH PEERS. I)ADMINISTER MEDS AND MONITOR COMPLIANCE. REORIENT NEEDED. R)MED COMPLIANT. POOR REORIENTATION DUE TO IMPAIRED ABILITY TO PROCESS AND RETAIN INFORMATION. P)CONTINUE POC AND PROVIDE SAFE ENVIRONMENT.
[2020-01-13 10:09] VITALS: BP 105/45
--- NOTE | 2020-01-13 12:12 | NUR ---
The patient is awake and more alert. He has a bandage on his left hip from a hip fx repair. He is confused and he talks nonsensical at times. He is not showing any aggression today. He is in a w/c, he tries to get up and has to be redirected. Provide prescribed meds. The patient is compliant with meds. Continue POC.
--- NOTE | 2020-01-13 15:48 | PN ---
PATIENT:MARGRET VALADEZ MEDICAL RECORD: [id number] LOCATION:DENNY Ibrahim ADMISSION DATE: 01/07/20 PROGRESS NOTE DATE OF SERVICE: 01/12/2020 SUBJECTIVE: The patient's case was discussed with staff. He has no new complaint. OBJECTIVE: The patient sleeps and eats well. He is very confused and difficult to redirect. He denies that he would seek to harm himself or others. He is oriented to person and place. He is confused about the date and situation. TRANSINT:[id number] Voice Confirmation ID: [id number] DOCUMENT ID: [id number] BOB ZAMUDIO MD at 1548 CC: [id number] DICTATION DATE: 01/12/201701 DELIVERY RN: 01/12/20 1715 ADM IN [id number] [place] [address]
[2020-01-13 20:11] VITALS: BP 149/45
--- NOTE | 2020-01-13 22:58 | NUR ---
PATIENT IS VERY CONFUSED, FIGIDITY, FOLLOWS DIRECTION FAIRLY WELL, CAN MAKE NEEDS KNOWN, WILL FOLLOW POC, NO AGGRESSION NOTED, NO AGITATION NOTED. WILL FOLLOW POC
--- NOTE | 2020-01-14 08:41 | PN ---
PATIENT:MARGRET VALADEZ MEDICAL RECORD: [id number] LOCATION:DENNY Ibrahim ADMISSION DATE: 01/07/20 PROGRESS NOTE DATE OF SERVICE: 01/13/2020 SUBJECTIVE: The patient's case was discussed with staff. He has no new complaint. OBJECTIVE: The patient is in good behavioral control. He has poor insight about his situation. ASSESSMENT: Dementia. PLAN: Current medicines and therapies have been reviewed, both will be maintained. Long-term prognosis is guarded. TRANSINT:[id number] Voice Confirmation ID: [id number] DOCUMENT ID: [id number] BOB ZAMUDIO MD at 0841 CC: [id number] DICTATION DATE: 01/13/201905 ALCOHOL AND DRUG COUNSELOR: 01/13/202039 ADM IN [place] [address] [place] [address]
[2020-01-14 10:35] VITALS: BP 130/59
--- NOTE | 2020-01-14 11:05 | NUR ---
The patient is awake and alert, he is pleasant, he self propels in a w/c. He is [place] and a high falls risk. He has not shown any aggression today. He has a dressing on his left hip. P.T. is here and she is trying to walk him with a walker and a gait belt. Provide prescribed meds. The patient is ambulating well with the walker, he is listening and cooperative today. Provide prescribed meds. The patient is compliant with meds. Continue POC.
[2020-01-14 20:00] VITALS: BP 148/88
--- NOTE | 2020-01-14 21:55 | NUR ---
PATIENT IS VERY CONFUSED, NO AGITATION NOTED. DOES NOT KNOW HIS PHYSICAL LIMITATIONS. COMPLIANT WITH MEDS, CAN MAKE SIMPLE NEEDS KNOWN, NO ADVERSE REACTION NOTED TO MEDS. WILL FOLLOW POC
[2020-01-15 08:47] VITALS: BP 137/65
--- NOTE | 2020-01-15 12:00 | NUR ---
RECEIVED IN HALLWAY OUTSIDE OF NURSES STATION. CALM AND COOPERATIVE WITH CARE AND ASSESSMENT. NO AGGRESSIVE BEHAVIOR. BECOMES AGITATED AT TIMES. REDIRECT AND REORIENT NEEDED. EATING LUNCH AT THIS TIME. CONTINUE PLAN OF CARE.
--- NOTE | 2020-01-15 13:42 | PN ---
PATIENT:MARGRET VALADEZ MEDICAL RECORD: [id number] LOCATION:DENNY Ibrahim ADMISSION DATE: 01/07/20 PROGRESS NOTE DATE OF SERVICE: 01/14/2020 SUBJECTIVE: The patient's case was discussed with staff. He has no new complaint. OBJECTIVE: The patient is sleeping and eating reasonably well. He is severely impaired cognitively and very difficult to redirect from a behavioral standpoint. ASSESSMENT: Dementia. PLAN: The patient is going to be treated with Namenda. Namenda is being used to treat his underlying cognitive impairment. He will be monitored for clinical changes associated with its use. TRANSINT:[id number] Voice Confirmation ID: [id number] DOCUMENT ID: [id number] BOB ZAMUDIO MD at 1342 CC: [id number] DICTATION DATE: 01/14/20 0859 SCALE TECHNICIAN: 01/14/20 0931 ADM IN [id number] [place] [address]
--- NOTE | 2020-01-15 19:15 | NUR ---
RECEIVED IN DAYROOM. SITTING IN A RECLINER WITH EYES OPEN. CALM AND COOPERATIVE WITH CARE AND ASSESSMENT. CONFUSED. REDIRECT AND REORIENT NEEDED. CONTINUES TO SIT QUIETLY IN DAYROOM. CONTINUE PLAN OF CARE.
[2020-01-15 19:24] VITALS: BP 156/69
[2020-01-16 08:46] VITALS: BP 151/64
--- NOTE | 2020-01-16 12:00 | NUR ---
RECEIVED IN HALLWAY OUTSIDE OF NURSES STATION. CALM AND COOPERATIVE WITH CARE AND ASSESSMENT. NO AGGRESSIVE BEHAVIOR. REDIRECT AND REORIENT NEEDED. EATING LUNCH AT THIS TIME. CDNTINUE PLAN OF CARE.
--- NOTE | 2020-01-16 14:31 | PN ---
PATIENT:MARGRET VALADEZ MEDICAL RECORD: [id number] LOCATION:DENNY Ibrahim ADMISSION DATE: 01/07/20 PROGRESS NOTE DATE OF SERVICE: 01/15/2020 SUBJECTIVE: The patient's case was discussed with staff. He has no new complaint. OBJECTIVE: The patient has pretty limited insight about his situation. He is somewhat sedated. He denies that he would seek to harm himself or others. TRANSINT:[id number] Voice Confirmation ID: [id number] DOCUMENT ID: [id number] BOB ZAMUDIO MD at 1431 CC: [id number] DICTATION DATE: 01/15/20 1352 BLOOD BANK WORKER: 01/15/20 1719 ADM IN [place] [id number] [place] [address]
--- NOTE | 2020-01-16 21:11 | NUR ---
B.) PT IS ALERT AND ORIENTED TO SELF ONLY. HE HAS POOR INSIGHT INTO HIS SITUATION. HE IS RECEIVED AT THE NURSES STATION. HE IS CALM AND COOPERATIVE. HE USES A GERICHAIR TO ASSIST WITH AMBULATION. HE DENIES ANY NEEDS OR WANTS AT THIS TIME. I.) PROVIDED PM MEDICATIONS. REDIRECT OFTEN. R.) COMPLIANT WITH ALL MEDICATIONS. EASY TO REDIRECT. P.) WILL CONTINUE TO MONITOR.
[2020-01-16 21:35] VITALS: BP 129/61
[2020-01-17 07:53] VITALS: BP 125/99
--- NOTE | 2020-01-17 08:30 | NUR ---
RECEIVED IN HALLWAY OUTSIDE OF NURSES STATION. CALM AND COOPERATIVE WITH CARE AND ASSESSMENT. NO AGGRESSIVE BEHAVIOR. NO AGITATION. REDIRECT AND REORIENT NEEDED. EATING BREAKFAST AT THIS TIME. CONTINUE PLAN OF CARE.
--- NOTE | 2020-01-17 13:39 | PN ---
PATIENT:MARGRET VALADEZ MEDICAL RECORD: [id number] LOCATION:DENNY Ibrahim ADMISSION DATE: 01/07/20 PROGRESS NOTE DATE OF SERVICE: 01/16/2020 SUBJECTIVE: The patient's case was discussed with staff. He has no new complaint. OBJECTIVE: The patient is much calmer. He has limited insight about his situation. He has not been aggressive. ASSESSMENT: Dementia. PLAN: Current medicines have been reviewed and will be maintained. Supportive and educational interventions were also made. TRANSINT:[id number] Voice Confirmation ID: [id number] DOCUMENT ID: [id number] BOB ZAMUDIO MD at 1339 CC: [id number] DICTATION DATE: 01/16/20 1543 HUMAN RESOURCE PROFESSIONAL: 01/16/20 1551 ADM IN [place] [address] [place] [id number]
[2020-01-17 19:30] VITALS: BP 146/62
--- NOTE | 2020-01-17 19:35 | NUR ---
RECEIVED IN BEDROOM. RESTING IN BED WITH EYES CLOSED. RESPONDS TO VOICE. CALM AND COOPERATIVE WITH CARE AND ASSESSMENT. NO SIGNS OF AGRESSION. REDIRECT AND REORIENT NEEDED. CONTINUES TO REST EYES CLOSED. CONTINUE PLAN OF CARE.
[2020-01-18 07:46] VITALS: BP 140/77
[2020-01-18 08:00] VITALS: BP 140/77
--- NOTE | 2020-01-18 11:20 | PN ---
PATIENT:MARGRET VALADEZ MEDICAL RECORD: [id number] LOCATION:DENNY Ibrahim ADMISSION DATE: 01/07/20 PROGRESS NOTE DATE OF SERVICE: 01/17/2020 SUBJECTIVE: The patient's case was discussed with staff. He has no new complaint. OBJECTIVE: The patient is in good behavioral control. He has poor insight. He is tolerating his medicines well. ASSESSMENT: Dementia. PLAN: The patient will be maintained on current medications. Long-term prognosis is guarded. TRANSINT:[id number] Voice Confirmation ID: [id number] DOCUMENT ID: [id number] BOB ZAMUDIO MD at 1120 CC: [id number] DICTATION DATE: 01/17/20 1422 CHROME TANNER: 01/17/20 1529 ADM IN [id number] [place] [address]
--- NOTE | 2020-01-18 14:20 | NUR ---
PT SITTING IN CHAIR AT THIS TIME. NO ACUTE DISTRESS NOTED. PT IS CONFUSED AND ALERT TO SELF ONLY. REDIRECT AND REORIENT NEEDED. PT IS COMPLIANT WITH MEDS, VITALS AND ASSESSMENT. NO BEHAVIORS NOTED AT THIS TIME. CHAIR ALARM IN PLACE AND ACTIVE. WILL CONT PLAN OF CARE.
[2020-01-18 20:41] VITALS: BP 138/66
--- NOTE | 2020-01-18 22:11 | NUR ---
B)RECEIVED PATIENT SITTING IN A CHAIR AT THE NURSES STATION. CONFUSED AND DISORIENTED. DELUSIONAL AND PARANOID STATING "WE NEED TO DISCUSS PLANS TO SETTLE THIS . CALL THE POLICE AND TELL THEM EVERYTHING THAT'S GOING ON." RELATES THE REASON HE IS HERE IS "BECAUSE THERE IS SO MUCH CONFUSION." DELUSIONAL RELATING HE IS "TH[place]TY FEET FROM WHERE I ORIGINAL LIVE." I)ADMINISTER MEDS AND MONITOR COMPLIANCE. REORIENT WITH REALITY BASED INFORMATION. R)MED COMPLIANT. POOR REORIENTATION DUE TO IMPAIRED ABILITY TO SEPARATE REALITY FROM FANTANSY. P)CONTINUE POC AND PROVIDE SAFE ENVIRONMENT.
--- NOTE | 2020-01-19 10:00 | NUR ---
SITTING CHAIR AT TABLE SPEAKING AT PEER. PT IS CONFUSED AND DISORIENTED. PT ALERT AND ORIENTED TO SELF. PT CAN MAKE SOME NEEDS KNOWN. PT CAN ANSWER SIMPLE QUESTIONS. REDIRECT AND REORIENT NEEDED. PT AT TIMES REQUIRES 2X FOR ASSIST FOR TRANSFER. PT IS COMPLIANT WITH MEDS, VITALS AND ASSESSMENT. NO BEHAVIORS NOTED AT THIS TIME. CHAIR ALARM IN PLACE AND ACTIVE. WILL CONT PLAN OF CARE
--- NOTE | 2020-01-19 13:52 | NUR ---
Nutrition Follow-up: Overall PO intake improved. Diet: Regular PO intake: 81% avg x 9 meals Wt: 185# (01/14); 160# (01/08); 163# (01/06) - large difference noted; will monitor for reweigh Last BM: 01/17 Labs reviewed Meds noted: Senokot, Nystatin, Protonix -Encourage PO intake and honor food preferences. -Offer nutrition supplements. -Monitor wt. -RD following.
--- NOTE | 2020-01-19 14:05 | PN ---
PATIENT:MARGRET VALADEZ MEDICAL RECORD: [id number] LOCATION:DENNY Ibrahim ADMISSION DATE: 01/07/20 PROGRESS NOTE DATE OF SERVICE: 01/18/2020 SUBJECTIVE: The patient's case was discussed with staff. He has no new complaint. OBJECTIVE: The patient is in good behavioral control. He has pretty limited insight about his situation. He has not been significantly agitated today. ASSESSMENT: Dementia. PLAN: The patient will be treated with Namenda at a slightly higher dose. Namenda is being used to treat his underlying cognitive impairment. This patient is in need of 81-lcqd-n-day supervision and I am working with the treatment team to find the least restrictive environment that can provide that to him. TRANSINT:[id number] Voice Confirmation ID: [id number] DOCUMENT ID: [id number] BOB ZAMUDIO MD at 1405 CC: [id number] DICTATION DATE: 01/18/20 1142 OUTSIDE PROPERTY AGENT: 01/18/20 1636 ADM IN [place] [id number] [place] [address]
--- NOTE | 2020-01-19 22:29 | NUR ---
B) Patient is alert and oriented to person, understands that he is in a hospital when reminded, calm and cooperative with staff, very unsteady on his feet, I) Administered scheduled medications as ordered, assisted with needs, R) Mediation compliant, able to make needs known, P) Continue plan of care.
[2020-01-20 11:05] VITALS: BP 158/65
--- NOTE | 2020-01-20 16:24 | NUR ---
PT EYES CLOSED AT THIS TIME. PT IS ALERT TO SELF ONLY. CONFUSED AND DISORIENTED. PT IS EASY TO REDIRECT WHEN NEEDED. PT IS CALM AND FRIENDLY WITH STAFF AND PEERS. PT UNDERSTANDS HE CAN NOT AMBUALTE WITH OUT ASSISTANCE. PT IS COMPLIANT WITH MEDS, VITALS AND ASSESSMENTS. PT HAS HAD NO BEHAVIORS AT THIS TIME. CHAIR ALARM IN PLACE AND ACTIVE. WILL CONT PLAN OF CARE.
[2020-01-20 20:00] VITALS: BP 158/64
--- NOTE | 2020-01-20 21:10 | NUR ---
B.) PT IS ALERT AND ORIENTED TO SELF ONLY. HE HAS POOR INSIGHT INTO HIS SITUATION. HE IS RECEIVED IN A GERICHAIR SITTING OUTSIDE THE NURSES STATION. HE IS CALM, COOPERATIVE AND PLEASANT WITH STAFF. HE DENIES ANY NEEDS AND WANTS AT THIS TIME. I.) PROVIDED PM MEDICATIONS PRESCRIBED. REDIRECT OFTEN. R.) COMPLIANT WITH ALL MEDICATIONS. EASY TO REDIRECT. P.) WILL CONTINUE TO MONITOR.
[2020-01-21 08:07] VITALS: BP 170/67
--- NOTE | 2020-01-21 08:41 | NUR ---
The patient is awake and alert, he is pleasant and calm. He is oriented x2. He remains confused, but he has not shown any aggression today. He has clips to his left hip from a surgical repair. He is able to stand, transfer, and ambulate with staff assist and a walker. Provide prescribed meds. The patient is compliant with meds. Continue POC.
[2020-01-21 10:13] VITALS: BP 170/67
--- NOTE | 2020-01-21 20:44 | NUR ---
B.) PT IS ALERT AND ORIENTED TO SELF ONLY. HE IS RECEIVED OUTSIDE THE NURSES STATION. HE IS CALM, COOPERATIVE AND PLEASANT WITH STAFF. HE DENIES ANY WANTS OR NEEDS AT THIS TIME. I.) PROVIDED PM MEDICATIONS PRESCRIBED. REDIRECT OFTEN. R.) COMPLIANT WITH ALL MEDICATION. EASY TO REDIRECT. P.) WILL CONTINUE TO MONITOR.
[2020-01-22 05:17] VITALS: BP 159/73
[2020-01-22 08:24] VITALS: BP 173/74
--- NOTE | 2020-01-22 10:14 | NUR ---
The patient is pleasant and calm he has not shown any aggression this am, he can stand and helps with transfers. He can ambulate with a walker with stand by assist. He has clips in his left hip and the incision is healing well. Provide prescribed meds. The patient is compliant with meds. Continue POC.
--- NOTE | 2020-01-22 18:40 | NUR ---
RECEIVED IN HALLWAY OUTSIDE OF NURSES STATION. YELLING OUT LOUDLY. COOPERATIVE WITH CARE AND ASSESSMENT. NO SIGNS OF AGGRESSION AT THIS TIME. RESTLESSNESS INCREASING. REDIRECT AND REORIENT NEEDED. CONTINUES TO YELL OUT LOUDLY. CONTINUE PLAN OF CARE.
--- NOTE | 2020-01-22 18:42 | NUR ---
RECEIVED IN HALLWAY OUTSIDE OF NURSES STATION. RESTING QUIETLY WITH EYES OPEN. CALM AND COOPERATIVE WITH CARE AND ASSESSMENT. NO SIGNS OF AGGRESSION. REDIRECT AND REORIENT NEEDED. CONTINUES TO SIT CALMLY IN HALLWAY. CONTINUE PLAN OF CARE.
[2020-01-22 18:55] VITALS: BP 140/66
[2020-01-23 08:29] VITALS: BP 191/77
--- NOTE | 2020-01-23 12:00 | NUR ---
RECEIVED IN HALLWAY OUTSIDE OF NURSES STATION. CALM AND COOPERATIVE WITH CARE AND ASSESSMENT. NO AGITATION. NO AGGRESSION. REDIRECT AND REORIENT NEEDED. EATING AT THIS TIME. CONTINUE PLAN OF CARE.
--- NOTE | 2020-01-23 13:26 | PN ---
PATIENT:MARGRET VALADEZ MEDICAL RECORD: [id number] LOCATION:DNENY Ibrahim ADMISSION DATE: 01/07/20 PROGRESS NOTE DATE OF SERVICE: 01/19/2020 SUBJECTIVE: The patient's case was discussed with staff. He has no new complaint. OBJECTIVE: The patient is in good behavioral control. He is only partially oriented. He has been referred to [facility] for rehabilitative services and they are reviewing his case. ASSESSMENT: Dementia. PLAN: As above. The patient will be maintained on current medicines and we are awaiting information about placement. TRANSINT:[id number] Voice Confirmation ID: [id number] DOCUMENT ID: [id number] BOB ZAMUDIO MD at 1326 CC: [id number] DICTATION DATE: 01/19/20 1509 OPERATING ENGINEER: 01/19/20 1529 ADM IN [place] [id number] [place] [address]
--- NOTE | 2020-01-23 17:00 | NUR ---
24 RISHI REMOVED FROM LEFT HIP. STERI STRIPS APPLIED. INCISION IS CLEAN WITH NO DRAINAGE. EDGES APPROXIMATED. NO SIGNS OF INFECTION. PATIENT EXPRESSED DISCOMFORT BUT TOLERATED WELL.
--- NOTE | 2020-01-23 19:12 | NUR ---
RECEIVED IN DAYROOM. SITTING IN A RECLINER WITH PEERS AT HIS SIDE. CALM AND COOPERATIVE WITH CARE AND ASSESSMENT. NO SIGNS OF AGGRESSION. REDIRECT AND REORIENT NEEDED. CONTINUES TO SIT CALMLY IN DAYROOM. CONTINUE PLAN OF CARE.
[2020-01-23 19:17] VITALS: BP 166/82
[2020-01-24 07:59] VITALS: BP 104/74
--- NOTE | 2020-01-24 10:28 | PN ---
PATIENT:MARGRET VALADEZ MEDICAL RECORD: [id number] LOCATION:[facility] ADMISSION DATE: 01/07/20 PROGRESS NOTE DATE OF SERVICE: 01/23/2020 SUBJECTIVE: The patient's case was discussed with staff. He has no new complaint. OBJECTIVE: The patient is in good behavioral control. He is limited in his insight. He is compliant with medications. ASSESSMENT: Dementia. PLAN: The patient will be maintained on current medications. I anticipate he can be transitioned out of the hospital soon. TRANSINT:[id number] Voice Confirmation ID: [id number] DOCUMENT ID: [id number] BOB ZAMUDIO MD at 1028 CC: [id number] DICTATION DATE: 01/23/20 1529 TALENT REP: 01/23/20 2319 ADM IN [place] [id number] [place] [address]
--- NOTE | 2020-01-24 11:14 | NUR ---
RECEIVED IN HALLWAY OUTSIDE OF NURSES STATION. CALM AND COOPERATIVE WITH CARE AND ASSESSMENT. NO AGGRESSION. REDRIECT AND REORIENT NEEDED. PARTICIPATING IN GROUP AT THIS TIME. CONTINUE PLAN OF CARE.
--- NOTE | 2020-01-24 19:52 | NUR ---
RECEIVED IN DAYROOM. RESTING IN RECLINER WITH EYES CLOSED. CALM AND COOPERATIVE WITH CARE AND ASSESSMENT. NO SIGNS OF AGGRESSION. REDIRECT AND REORIENT NEEDED. RESTING IN RECLINER OUTSIDE OF NURSES STATION AT THIS TIME. CONTINUE PLAN OF CARE.
[2020-01-24 21:00] VITALS: BP 153/63
[2020-01-25 09:04] VITALS: BP 152/68
--- NOTE | 2020-01-25 09:39 | PN ---
PATIENT:MARGRET VALADEZ MEDICAL RECORD: [id number] LOCATION:[facility] ADMISSION DATE: 01/07/20 PROGRESS NOTE DATE OF SERVICE: 01/24/2020 SUBJECTIVE: The patient's case was discussed with staff. He has no new complaint. OBJECTIVE: The patient is in good behavioral control. He has poor insight about his situation. He is being evaluated for a rehabilitation stay by a local custodial. ASSESSMENT: Dementia. PLAN: Current medicines have been reviewed and will be maintained. The patient's long-term prognosis is guarded. TRANSINT:[id number] Voice Confirmation ID: [id number] DOCUMENT ID: [id number] BOB ZAMUDIO MD at 0939 CC: [id number] DICTATION DATE: 01/24/20 1302 REGIONAL EXTENSION SERVICE SPECIALIST: 01/24/20 1709 ADM IN [facility] [address] [place] [address]
--- NOTE | 2020-01-25 11:27 | NUR ---
SW SPOKE WITH PT'S SON, MARIO, TO DISCUSS DISCHARGE PLANNING. MEHNAZ HAS DECLINED PT AT THIS TIME. SW SENT REFERRAL TO [facility] IN [facility]. MARIO VERBALIZED UNDERSTANDING OF DISCUSSION.
--- NOTE | 2020-01-25 12:00 | NUR ---
RECEIVED IN HALLWAY OUTSIDE OF NURSES STATION. CALM AND COOPERATIVE WITH CARE AND ASSESSMENT. NO AGGRESSION. REDIRECT AND REORIENT NEEDED. EATING LUNCH AT THIS TIME. CONTINUE PLAN OF CARE.
[2020-01-25 20:38] VITALS: BP 144/60
--- NOTE | 2020-01-25 20:45 | NUR ---
B.) PT IS ALERT AND ORIENTED TO SELF ONLY. HE HAS POOR INSIGHT INTO HIS SITUATION. HE IS RECEIVED OUTSIDE THE NURSES STATION ON THE PHONE WITH FAMILY. HE IS CALM AND COOPERATIVE WITH STAFF. I.) PROVIDED PM MEDICATIONS PRESCRIBED. REDIRECT IF NEEDED. R.) COMPLIANT WITH ALL MEDICATIONS. EASY TO REDIRECT. P.) WILL CONTINUE TO MONITOR.
[2020-01-26 08:56] VITALS: BP 151/63
--- NOTE | 2020-01-26 10:16 | NUR ---
PT SITTING IN CHAIR WITH EYES CLOSED. PT IS FRIENDLY WITH STAFF AND PEERS. PT IS ALERT TO SELF ONLY. CONFUSED AND DISORIENTED. POOR INSIGHT TO SITUATION. NO BEHAVIORS REPORTED FROM PREVIOUS SHIFT. PT DENIES ANY PAIN. PT AT TIMES CAN MAKE NEEDS KNOWN. PT REQUIRES ASSISTANCE WITH ADLS, TRANSFERS. NO BEHAVIORS NOTED AT THIS TIME. PT COMPLIANT WITH MEDS, VITALS AND ASSESSMENTS. CHAIR ALARM IN PLACE AND ACTIVE. WILL CONT PLAN OF CARE.
--- NOTE | 2020-01-26 13:01 | PN ---
PATIENT:MARGRET VALADEZ MEDICAL RECORD: [id number] LOCATION:[facility] ADMISSION DATE: 01/07/20 PROGRESS NOTE DATE OF SERVICE: 01/25/2020 SUBJECTIVE: The patient's case was discussed with staff. He has no new complaint. OBJECTIVE: The patient is in better behavioral control. He has limited insight about his condition. He has been turned down for rehabilitative services. His son is looking for long-term care placement at this time. ASSESSMENT: Dementia. PLAN: The patient is not having agitation currently. I am going to discontinue his Trilafon. TRANSINT:[id number] Voice Confirmation ID: [id number] DOCUMENT ID: [id number] BOB ZAMUDIO MD at 1301 CC: [id number] DICTATION DATE: 01/25/20 165 SECURITY POLICE OFFICER: 01/26/20 0041 ADM IN [place] [id number] [place] [id number]
--- NOTE | 2020-01-26 14:35 | NUR ---
Nutrition Follow-up: Overall PO intake remains good. Noted pt c/o diarrhea yesterday; Senokot has been d/c'd. Diet: Regular PO intake: 86% avg x 9 meals Wt: 179# (01/21); 185# (01/14); 163# (01/06) No new labs Meds noted: Nystatin, Protonix -Encourage PO intake and honor food preferences. -Monitor wt. -RD following.
[2020-01-26 19:32] VITALS: BP 132/49
--- NOTE | 2020-01-26 20:38 | NUR ---
B.) PT IS ALERT AND ORIENTED TO SELF ONLY. HE IS RECEIED IN THE DAYROOM ON THE PHONE WITH HIS SON. HE IS CALM AND COOPERATIVE WITH STAFF. HE DENIES ANY WANTS OR NEEDS AT THIS TIME. I.) PROVIDED PM MEDICATIONS PRESCRIBED. REDIRECT OFTEN. R.) COMPLIANT WITH ALL MEDICATIONS. EASY TO REDIRECT. P.) WILL CONTINUE TO MONITOR.
--- NOTE | 2020-01-27 08:04 | NUR ---
The patient is awake and he is pleasant, he is STANDING ROCK, but he responds and converses if staff speak loudly. He is able to stand and transfer with staff assist. His scar on his left hip looks good. He has poor insight into his situation. Provide prescribed meds. The patient is compliant with meds. He has not shown any aggression this am. Provide prescribed meds. The patient is compliant with meds. Continue POC.
[2020-01-27 08:41] VITALS: BP 178/82
[2020-01-27 19:49] VITALS: BP 151/52
--- NOTE | 2020-01-27 20:06 | NUR ---
PATIENT IS PLEASANT BUT STILL VERY CONFUSED, COMPLIANT WITH MEDS, CAN MAKE NEEDS KNOWN. TRIES TO HELLP OTHER RESIDENTS SUCH LETTING THEIR NEEDS BE KNOWN, CAN FOLLOW DIRECTIONS AND MAKE HIS NEEDS KNOWN.
[2020-01-28 07:45] VITALS: BP 162/67
--- NOTE | 2020-01-28 11:06 | NUR ---
The patient is sleepy, but he awakens to eat and take his meds, he is pleasant and he likes to joke with staff. He is not aggressive today. Provide prescribed meds. The patient is compliant with meds. He assists with standing and transferring. Continue POC.
[2020-01-28 19:32] VITALS: BP 134/63
--- NOTE | 2020-01-28 22:35 | NUR ---
B)RECEIVED PATIENT SITTING IN THE DAYROOM. CONFUSED AND DISORIENTED. THINKS [place] IS [place] RELATES THE REASON FOR HOSPITALIZATION IS "TERMITES I GUESS." COOPERATIVE AND PLEASANT. I)ADMINISTER MEDS AND MONITOR COMPLIANCE. REORIENT NEEDED. R)MED COMPLIANT. POOR REORIENTATION DUE TO IMPAIRED ABILITY TO COMPREHEND, PROCESS AND MAINTAIN INFORMATION. P)CONTINUE POC AND PROVIDE SAFE ENVIRONMENT.
[2020-01-29 08:31] VITALS: BP 193/83
--- NOTE | 2020-01-29 12:00 | NUR ---
RECEIVED IN HALLWAY OUTSIDE OF NURSES STATION. CALM AND COOPERATIVE WITH CARE AND ASSESSMENT. NO AGGRESSIVE BEHAVIORS. STILL YELLING OUT TIMES. REDIRECT AND REORIENT NEEDED. EATING LUNCH AT THIS TIME. CONTINUE PLAN OF CARE.
--- NOTE | 2020-01-29 16:26 | PN ---
PATIENT:MARGRET VALADEZ MEDICAL RECORD: [id number] LOCATION:[facility] ADMISSION DATE: 01/07/20 PROGRESS NOTE DATE OF SERVICE: 01/26/2020 SUBJECTIVE: The patient's case was discussed with staff. He has no new complaint. OBJECTIVE: The patient has not been disruptive or agitated. His Trilafon has been discontinued. ASSESSMENT: Dementia. PLAN: Current medicines and therapies have been reviewed. Long-term prognosis is guarded. TRANSINT:[id number] Voice Confirmation ID: [id number] DOCUMENT ID: [id number] BOB ZAMUDIO MD at 1626 CC: [id number] DICTATION DATE: 01/26/20 1749 DONOR FLOOR TECHNICIAN: 01/26/20 2331 ADM IN [place] [address] [place] [address]
[2020-01-29] MEDS ORDERED: DONEPEZIL HCL10 MG PO (16:31)
[2020-01-29] MEDS ORDERED: Nystatin Oral Susp [ PO (16:31)
[2020-01-29] MEDS ORDERED: ACETAMINOPHEN325 MG PO (16:32)
[2020-01-29] MEDS ORDERED: TOPROL XL50 MG PO (16:32)
[2020-01-29] MEDS ORDERED: LISINOPRIL10 MG PO (16:32)
[2020-01-29] MEDS ORDERED: Nizoral 2 % Cream TOPICAL (16:33)
[2020-01-29] MEDS ORDERED: NAMENDA5 MG PO (16:33)
--- NOTE | 2020-01-29 19:14 | NUR ---
RECEIVED IN DAYROOM. SITTING IN A RECLINER AT THE TABLE. CALM AND COOPERATIVE WITH CARE AND ASSESSMENT. NO SIGNS OF AGGRESSION. REDIRECT AND REORIENT NEEDED. CONTINUES TO SIT CALMLY IN DAYROOM. CONTINUE PLAN OF CARE.
[2020-01-29 19:28] VITALS: BP 144/59
--- NOTE | 2020-01-30 08:00 | NUR ---
RECEIVED IN HALLWAY OUTSIDE OF NURSES STATION. CALM AND COOPERATIVE WITH CARE AND ASSESSMENT. NO AGGRESSION. REDIRECT AND REORIENT NEEDED. EATING BREAKFAST AT THIS TIME. CONTINUE PLAN OF CARE.
[2020-01-30 08:43] VITALS: BP 190/76
--- NOTE | 2020-01-30 13:15 | NUR ---
PATIENT DISCHARGED TO [facility]. TRANSPORTED VIA [facility]. PAPERWORK FAXED TO [facility]. HARD COPY SENT WITH PATIENT. PERSONAL BELONGINGS SENT WITH PATIENT. MEDICATIONS SENT ELECTRONICALLY TO PHARMACY.
--- NOTE | 2020-01-31 11:32 | DS ---
PATIENT:MARGRET VALADEZ :37 MEDICAL RECORD: [id number] DISCHARGE SUMMARY ADMISSION DATE: 01/07/20 DISCHARGE DATE: 01/30/20 IDENTIFYING DATA: The patient is 84 years old and he was admitted to the hospital on a voluntary basis. CHIEF COMPLAINT: Aggression. HISTORY OF PRESENT ILLNESS: The patient lives in a local assisted living center. He has been agitated there. He has been wandering and difficult to redirect. The staff is trying to work with him, but has become increasingly difficult. Apparently, he fell and broke his hip and then was subsequently sent to the hospital where he continued to have the aggressive behavior and was referred to the behavioral unit. HOSPITAL COURSE: The patient was admitted to the hospital and fully evaluated from both a medical, psychological, and social standpoint. He was found to have an advanced dementia and was treated with both mood stabilizing and memory enhancing medications. He showed improvement through the course of his hospitalization and was subsequently transitioned to home. 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 AXIS II: None. AXIS III: Status post left hip fracture, hypertension, and gastroesophageal reflux disease. AXIS IV: Moderate. AXIS V: Global assessment of functioning is 40. PLAN: At the time of discharge, the patient was in good behavioral control and had no evidence of acute or direct dangerousness to himself or others. He was tolerating his medicines well. His long-term prognosis is guarded. Followup is to be with his primary care physician. TRANSINT:[id number] Voice Confirmation ID: [id number] DOCUMENT ID: [id number] BOB ZAMUDIO MD at 1132 CC: [id number] DICTATION DATE: 01/30/20 1533 FIELD TEST ENGINEER: 01/31/20 0004 DIS IN 01/30/20 [facility] [address] [place] [address]
== END 2020-01-30 13:15 | DRG 56 ==
LOC: D.PSYCH 14:52
PROVIDERS: ADMIT Psychiatry & Neurology Psychiatry; ATTEND Psychiatry & Neurology Psychiatry
DX: G30.1 Alzheimer's disease with late onset (principal); S72.002A Fracture of unspecified part of neck of left femur, initial encounter for closed fracture; F02.81 Dementia in other diseases classified elsewhere, unspecified severity, with behavioral disturbance; W19.XXXA Unspecified fall, initial encounter; Z74.09 Other reduced mobility; I48.0 Paroxysmal atrial fibrillation; R19.7 Diarrhea, unspecified; L21.9 Seborrheic dermatitis, unspecified; K21.9 Gastro-esophageal reflux disease without esophagitis; I10 Essential (primary) hypertension